=== PATIENT | female | born 2000 | race Caucasian/White ===

== ENCOUNTER 2024-06-04 07:40 | Emergency (ER) | payer BC ==
[~2024-06-04] VITALS: Ht 170.2 cm; Wt 121.0 kg
[2024-06-04 07:58] VITALS: O2SAT 99
[2024-06-04] MEDS ORDERED: AZIT250T12 MT (10:17)
[2024-06-04] MEDS ORDERED: FLUT9.9S BOTHNSTRLS (10:17)
[2024-06-04 10:23] VITALS: BP 156/95; PULSE 89; RESP 17; TEMP 98.4
== END 2024-06-04 10:28 | disposition home or self-care (01) ==
LOC: ER 07:40
DX: J01.90 Acute sinusitis, unspecified (principal); Z88.8 Allergy status to other drugs, medicaments and biological substances
CPT/HCPCS: 99283